=== PATIENT | female | born 1960 | race Caucasian/White ===

== ENCOUNTER 2017-05-26 12:37 | Emergency (ER) | payer OTHER ==
[~2017-05-26] VITALS: Ht 162.6 cm; Wt 55.8 kg
--- NOTE | ~2017-05-26 | EKG ---
[address] [address] ELECTROCARDIOGRAM REPORT Name: HAL VILLA Room #: [id number] Admission: 05/26/17 Attend Phys: Discharge: 05/26/17 Date of : 56 Report #: [id number] THIS REPORT FOR: //name// [facility] ED Test Date: 2017-05-26 Test Time: 13:35:50 Pat Name: HAL VILLA Department: Room: Gender: F Financial Compliance Manager: [facility] : 1960 Requested By: Froilan Benson Order Number: [id number] MD: Cortez Herman Measurements Intervals [place] Rate: 65 P: 0 NV: 136 QRS: 46 QRSD: 86 T: 42 QT: 380 QTc: 396 Interpretive Statements Sinus rhythm No previous ECG available for comparison Electronically Signed On 05-27-2017 13:24:47 CDT by Cortez Herman [email or web address] <ELECTRONICALLY SIGNED> By: Cortez Herman MD 05/27/17 1324 [id number] 1335 Cortez Herman MD /MEGAN
[2017-05-26] MEDS ORDERED: ESTRADIOL 1 MG T1 M1 PO (12:46)
[2017-05-26] MEDS ORDERED: MICROGESTIN FE1 EAC1 PO (12:47)
[2017-05-26 13:59] LABS: ABSOLUTE NEUTROPHILS 5.6 thou/uL (1.4-8.2); BASOPHILS 0.5 % (0.0-2.0); EOSINOPHILS 0.3 % (0.0-3.0); HEMATOCRIT 40.8 % (37.0-47.0); HEMOGLOBIN 13.7 gm/dL (12.0-15.0); LYMPHOCYTES 9.8 % (24.0-44.0); MCH 32.6 pg (26.0-34.0); MCHC 33.5 g/dL (28.0-37.0); MCV 97.3 fL (80.0-100.0); MONOCYTES 6.1 % (1.0-8.0); PLATELET COUNT 254 thou/uL (150-400); POLYS 83.3 % (36.0-66.0); RBC 4.19 mil/uL (4.20-5.00); RDW 12.1 % (10.5-14.5); WBC 6.8 thou/uL (4.0-11.0)
[2017-05-26 14:07] LABS: CREATININE 0.8 mg/dL (0.6-1.0); POTASSIUM 4.4 mmol/L (3.5-5.1)
[2017-05-26 14:09] LABS: MANUAL DIFF NO
[2017-05-26] MEDS ORDERED: PHENERGAN 25 MG25 M1 PO (15:27)
[2017-05-26] MEDS ORDERED: ANTIVERT25 MG PO (15:27)
[2017-05-26 15:28] VITALS: BP 116/50
== END 2017-05-26 15:29 | disposition home or self-care (01) ==
LOC: ER 12:37
PROVIDERS: Nurse Practitioner
DX: R42 Dizziness and giddiness (principal); R11.0 Nausea; F10.99 Alcohol use, unspecified with unspecified alcohol-induced disorder

== ENCOUNTER → 2018-08-21 | Outpatient (CLI) | payer OTHER ==
[~2018-08-21] MED LIST: ANTIVERT25 MG PO; ESTRADIOL 1 MG T1 M1 PO; MICROGESTIN FE1 EAC1 PO; PHENERGAN 25 MG25 M1 PO
== END | disposition home or self-care (01) ==
LOC: GI 06:42
DX: Z12.11 Encounter for screening for malignant neoplasm of colon (principal); K64.8 Other hemorrhoids; R42 Dizziness and giddiness; N95.9 Unspecified menopausal and perimenopausal disorder; Z98.890 Other specified postprocedural states
CPT/HCPCS: 62110; 62900

== ENCOUNTER → 2020-01-30 | Outpatient (CLI) | payer OTHER | LOC: LAB 08:52 | PROVIDERS: ATTEND Family Medicine | DX: U07.1 COVID-19 (principal); R05 Cough ==

== ENCOUNTER → 2020-09-09 | Outpatient (CLI) | payer OTHER | LOC: BC 08:21 | PROVIDERS: ATTEND Nurse Practitioner | DX: Z12.31 Encounter for screening mammogram for malignant neoplasm of breast (principal) ==

== ENCOUNTER → 2020-09-26 | Outpatient (CLI) | payer OTHER ==
[2020-09-26 12:59] LABS: ABSOLUTE NEUTROPHILS 3.7 thou/uL (1.4-8.2); BASOPHILS 0.6 % (0.0-2.0); EOSINOPHILS 1.7 % (0.0-3.0); HEMATOCRIT 41.9 % (37.0-47.0); HEMOGLOBIN 13.8 gm/dL (12.0-15.0); LYMPHOCYTES 26.7 % (24.0-44.0); MCH 33.2 pg (26.0-34.0); MCHC 32.9 g/dL (28.0-37.0); MCV 101.1 fL (80.0-100.0); MONOCYTES 9.5 % (1.0-8.0); PLATELET COUNT 260 thou/uL (150-400); POLYS 61.5 % (36.0-66.0); RBC 4.15 mil/uL (4.20-5.00); RDW 12.2 % (10.5-14.5); WBC 6.1 thou/uL (4.0-11.0)
[2020-09-26 13:24] LABS: ALBUMIN 4.2 g/dL (3.4-5.0); ANION GAP 8 mmol/L (7-16); BUN 15 mg/dL (7-18); CALCIUM 9.2 mg/dL (8.5-10.1); CHLORIDE 103 mmol/L (98-107); CHOLESTEROL 188 mg/dL (<200); CO2 27 mmol/L (21-32); GLUCOSE 92 mg/dL (74-106); HDL CHOLESTEROL 57 mg/dL (>40); LDL CHOLESTEROL 120 mg/dL (<100); POTASSIUM 4.7 mmol/L (3.5-5.1); SGOT 20 U/L (15-37); SGPT 30 U/L (30-65); SODIUM 138 mmol/L (136-145); TC:HDL 3.3 Ratio (Not establshd); TOTAL BILIRUBIN 0.9 mg/dL (0.2-1.0); TOTAL PROTEIN 7.1 g/dL (6.4-8.2); TRIGLYCERIDE 55 mg/dL (<150); VLDL 11 mg/dL (<40)
== END ==
LOC: LAB 11:44
PROVIDERS: ATTEND Nurse Practitioner
DX: Z01.419 Encounter for gynecological examination (general) (routine) without abnormal findings (principal); Z13.220 Encounter for screening for lipoid disorders

== ENCOUNTER → 2020-11-04 | Outpatient (CLI) | payer OTHER | LOC: CAT 09:31 | PROVIDERS: ATTEND Nurse Practitioner | DX: R43.9 Unspecified disturbances of smell and taste (principal) ==